=== PATIENT | male | born 1950 | race Caucasian/White ===

== ENCOUNTER → 2017-11-29 | Outpatient (CLI) | payer BC ==
[~2017-11-29] MED LIST: CEFD300 PO; Flonase 0.05% N16 GM
== END ==
LOC: LAB 19:52 → LAB SHORT 19:52
DX: M79.604 Pain in right leg (principal); L98.9 Disorder of the skin and subcutaneous tissue, unspecified
CPT/HCPCS: 87070; 87075; 87205

== ENCOUNTER 2017-12-04 10:58 | Emergency (ER) | payer BC ==
[~2017-12-04] VITALS: Ht 170.2 cm; Wt 86.2 kg
[2017-12-04 11:28] LABS: Source, Urine Clean Catch
[2017-12-04 11:53] LABS: BASOPHILS ABSOLUTE AUTO 0.06 K/mm3 (0.00-0.23); BASOPHILS PERCENT AUTO 1 % (0-2); EOSINOPHILS ABSOLUTE AUTO 0.47 K/mm3 (0.00-0.68); EOSINOPHILS PERCENT AUTO 8 % (0-6); Hematocrit 48.9 % (37.0-53.0); Hemoglobin 16.5 g/dL (13.5-17.5); IMMATURE GRAN ABSOLUTE AUTO 0.02 K/mm3 (0.00-0.10); IMMATURE GRAN PERCENT AUTO 0 % (0-1); LYMPHOCYTES ABSOLUTE AUTO 1.31 K/mm3 (0.84-5.20); LYMPHOCYTES PERCENT AUTO 22 % (21-46); MONOCYTES ABSOLUTE AUTO 0.54 K/mm3 (0.16-1.47); MONOCYTES PERCENT AUTO 9 % (4-13); Mean Corpuscular HGB Conc 33.7 g/dL (31.5-36.5); Mean Corpuscular Volume 95 fL (80-100); Mean Platelet Volume 10.8 fL (9.1-12.4); NEUTROPHILS ABSOLUTE AUTO 3.57 K/mm3 (1.96-9.15); NEUTROPHILS PERCENT AUTO 60 % (41-73); Platelet Count 223 K/mm3 (150-400); RDW Coefficient Variation 12.6 % (11.7-14.2); RDW Standard Deviation 44.5 fL (35.1-46.3); Red Blood Cell Count 5.16 M/mm3 (4.30-5.90); White Blood Cell Count 5.97 K/mm3 (4.00-11.30)
[2017-12-04 11:54] LABS: Bilirubin, Urine Neg (Neg); Blood, Urine Neg (Neg); Glucose Qualitative, Urine Neg (Neg); Ketones, Urine Neg (Neg); Leukocyte Esterase, Urine Neg (Neg); Nitrite, Urine Neg (Neg); Protein, Urine Neg (Neg); Specific Gravity, Urine 1.015 (1.003-1.022); Urobilinogen, Urine NORM (Normal)
[2017-12-04 11:56] LABS: Alanine Aminotransfer (ALT/SGP 73 U/L (12-78); Albumin, Blood 4.1 g/dL (3.4-5.0); Albumin/Globulin Ratio 1.1 (0.8-1.8); Alk Phos 169 U/L (50-136); Anion Gap 8 mmol/L (6-16); Aspartate Aminotrans (AST/SGOT 31 U/L (12-37); Bilirubin, Total 0.3 mg/dL (0.1-1.0); Blood Urea Nitrogen 17 mg/dL (8-24); Bun/Creatinine Ratio 21.5 (12.0-20.0); CO2, Blood 24 mmol/L (21-32); Calcium, Blood 8.6 mg/dL (8.5-10.1); Chloride, Blood 110 mmol/L (98-108); Creatinine, Blood 0.79 mg/dL (0.60-1.20); Globulin, Blood 3.6 g/dL (2.2-4.0); Glomerular Filtration Rate >60 (60-); Glucose, Blood 104 mg/dL (70-99); Potassium, Blood 4.1 mmol/L (3.5-5.5); Sodium, Blood 142 mmol/L (136-145); Total Protein, Blood 7.7 g/dL (6.4-8.2)
[2017-12-04 12:15] LABS: Appearance, Urine Clear (Clear); Color, Urine Yellow (P-Yellow)
[2017-12-04 15:26] LABS: U Amphetamine Screen Not Detected; U Barbituate Screen Not Detected; U Benzodiazapine Screen Not Detected; U Buprenorphine Screen Not Detected; U Cannabinoids Screen Not Detected; U Cocaine Screen Not Detected; U Methadone Screen Not Detected; U Methamphetamine Screen Not Detected; U Opiates Screen Not Detected; U Oxycodone Screen Not Detected; U Phencyclidine Screen Not Detected; U Propoxyphene Screen Not Detected
== END 2017-12-04 17:36 | disposition home or self-care (01) ==
LOC: ER 10:58
PROVIDERS: Emergency Medicine; Nurse Practitioner Family
DX: G45.9 Transient cerebral ischemic attack, unspecified (principal); R47.1 Dysarthria and anarthria; I10 Essential (primary) hypertension; Z79.899 Other long term (current) drug therapy
CPT/HCPCS: 36415; 70450; 80053; 81003; 85025; 99285-25

== ENCOUNTER 2020-03-31 06:25 | Day surgery (SDC) | payer BC, MEDICARE ==
[~2020-03-31] VITALS: Ht 170.2 cm; Wt 79.0 kg
[~2020-03-31 06:25] MED LIST changes: +ATOR40TA PO; +PREG50 PO; +TRAM50 PO; +ZOLP10 PO
[2020-03-31] MEDS ORDERED: MONT5TCH (07:16)
--- NOTE | 2020-03-31 09:50 | NUR ---
03/31/20 0950 Kristina Escalera PT. STATES PAIN IS 3/10 AND TOLERABLE FOR HIM. DC INSTRUCTIONS GIVEN AND ASSISTED TO DRESS. DC HOME WITH ALL BELONGINGS.
== END 2020-03-31 10:00 | disposition home or self-care (01) ==
LOC: ORSCSDS 06:25
PROVIDERS: Podiatrist Foot & Ankle Surgery
PROC: 0QBJ0ZZ Excision of Right Fibula, Open Approach (ICD-10-PCS; principal; 2020-03-31 07:30)
PROC: 0LQN0ZZ Repair Right Lower Leg Tendon, Open Approach (ICD-10-PCS; principal; 2020-03-31 07:30)
DX: M76.61 Achilles tendinitis, right leg (principal); M89.8X7 Other specified disorders of bone, ankle and foot; E78.00 Pure hypercholesterolemia, unspecified; Z79.899 Other long term (current) drug therapy
CPT/HCPCS: 82947; C1713; J0171; J0690; J2250; J2704; J3010; J7120

== ENCOUNTER 2020-05-12 11:06 | Day surgery (SDC) | payer BC, MEDICARE ==
[~2020-05-12] VITALS: Ht 170.2 cm; Wt 82.6 kg
[~2020-05-12 11:06] MED LIST changes: +MONT5TCH
[2020-05-12] MEDS ORDERED: Mobic15 MG PO (11:31)
== END 2020-05-12 12:10 | disposition home or self-care (01) ==
LOC: ORSCSDS 11:06
PROVIDERS: Anesthesiology
PROC: 3E0R33Z Introduction of Anti-inflammatory into Spinal Canal, Percutaneous Approach (ICD-10-PCS; principal; 2020-05-12 12:00)
DX: M54.16 Radiculopathy, lumbar region (principal); I10 Essential (primary) hypertension; E78.00 Pure hypercholesterolemia, unspecified; Z79.899 Other long term (current) drug therapy
CPT/HCPCS: J1040

== ENCOUNTER 2020-08-18 08:37 | Day surgery (SDC) | payer BC, MEDICARE ==
[~2020-08-18] VITALS: Ht 170.2 cm; Wt 83.1 kg
[~2020-08-18 08:37] MED LIST changes: +INDO50 PO; +Mobic15 MG PO
[2020-08-18] MEDS ORDERED: GABA300 PO (08:51)
== END 2020-08-18 09:35 | disposition home or self-care (01) ==
LOC: ORSCSDS 08:37
PROVIDERS: Anesthesiology
PROC: 3E0R33Z Introduction of Anti-inflammatory into Spinal Canal, Percutaneous Approach (ICD-10-PCS; principal; 2020-08-18 09:30)
DX: M51.16 Intervertebral disc disorders with radiculopathy, lumbar region (principal); K21.9 Gastro-esophageal reflux disease without esophagitis; I10 Essential (primary) hypertension; E78.00 Pure hypercholesterolemia, unspecified; Z79.899 Other long term (current) drug therapy
CPT/HCPCS: J1040

== ENCOUNTER → 2024-03-09 | Outpatient (CLI) | payer MEDICARE, OTHER ==
[~2024-03-09] MED LIST changes: +GABA300 PO
== END ==
LOC: LAB 11:11 → LAB SHORT 11:11
DX: R10.13 Epigastric pain (principal)
CPT/HCPCS: 87338